=== PATIENT | male | born 1940 | race Hispanic/Latino ===

== ENCOUNTER 2017-07-02 11:59 | Emergency (ER) | payer OTHER ==
[2017-07-02] MEDS ORDERED: LIDOCAINE HCL-MPF 1% 2ML VIAL ONE (12:35)
[2017-07-02] MEDS ORDERED: CEFTRIAXONE SODIUM 500 MG VIAL ONE (12:35)
[2017-07-02] MEDS ORDERED: AZITHROMYCIN 250 MG TABLET PO ONE (12:36)
[2017-07-02 13:10] LABS: APPEARANCE,URINE Cloudy (CLEAR); BILIRUBIN,URINE Negative (NEGATIVE); COLOR,URINE Dark Yellow (YELLOW); GLUCOSE, URINE (UA) TRACE mg/dL (NEGATIVE); KETONES,URINE Negative (NEGATIVE); LEUKOCYTE ESTERASE ,URINE Large (NEGATIVE); NITRATE,URINE Negative (NEGATIVE); OCCULT BLOOD,URINE Small (NEGATIVE); PH,URINE 5.5 (5.0-8.0); PROTEIN,URINE POS 1+ (NEGATIVE)
[2017-07-02 13:36] LABS: BACTERIA,URINE Rare /HPF (None Seen); SQUAMOUS EPITHELIAL CELL,UR Rare /HPF (0-2); WBC,URINE TNTC /HPF (0-1)
[2017-07-02 14:11] LABS: BASOPHILS % (AUTO) 0.4 % (0.0-5.0); HEMATOCRIT 42.9 % (42-54); LYMPHOCYTES % (AUTO) 8.6 % (21.0-51.0); MEAN CORPUSCULAR HEMOGLOBIN 28.3 pg (27.0-33.0); MEAN CORPUSCULAR HGB CONC 33.8 g/dL (32.0-36.0); MEAN CORPUSCULAR VOLUME 83.7 fL (79-99); MONOCYTES % (AUTO) 8.7 % (3.0-13.0); NEUTROPHILS % (AUTO) 82.3 % (40.0-77.0); PLATELET COUNT (AUTO) 208 K/uL (130-400); RED BLOOD CELL COUNT(AUTO) 5.13 MIL/uL (4.50-6.20); RED CELL DISTRIBUTION WIDTH 13.3 % (11.0-15.5); WHITE BLOOD COUNT (AUTO) 20.9 K/uL (4.8-10.8)
[2017-07-02 14:22] LABS: CREATININE 0.9 mg/dL (0.5-1.5); POTASSIUM 3.9 mmol/L (3.5-5.1)
[2017-07-02 14:27] LABS: ALBUMIN 3.9 g/dL (3.5-5.0); BILIRUBIN,TOTAL 1.1 mg/dL (0.2-1.0); TOTAL PROTEIN, SERUM 8.3 g/dL (6.0-8.3)
[2017-07-02] MEDS ORDERED: LEVOFLOXACIN 500 MG TABLET ONE (14:40)
== END 2017-07-02 15:04 | disposition left against medical advice (07) ==
LOC: EDH 11:59
DX: N45.3 Epididymo-orchitis (principal); E78.5 Hyperlipidemia, unspecified; E11.9 Type 2 diabetes mellitus without complications; I10 Essential (primary) hypertension; Z85.038 Personal history of other malignant neoplasm of large intestine; Z98.890 Other specified postprocedural states
CPT/HCPCS: 36415; 76870; 80053; 81001; 83605; 85025; 87486; 87797; 96372; 99285; J0696; J3490

== ENCOUNTER 2018-06-08 12:05 | Emergency (ER) | payer OTHER | END 2018-06-08 15:24 | disposition home or self-care (01) | LOC: EDH 12:05 | DX: S16.1XXA Strain of muscle, fascia and tendon at neck level, initial encounter (principal); S40.012A Contusion of left shoulder, initial encounter; E11.9 Type 2 diabetes mellitus without complications; E78.5 Hyperlipidemia, unspecified; I10 Essential (primary) hypertension; Z85.038 Personal history of other malignant neoplasm of large intestine; V49.9XXA Car occupant (driver) (passenger) injured in unspecified traffic accident, initial encounter; Y93.89 Activity, other specified; Y92.89 Other specified places as the place of occurrence of the external cause; Y99.8 Other external cause status | CPT/HCPCS: 70450; 71046; 72125; 73030; 99282 ==

== ENCOUNTER → 2019-09-25 | Outpatient (CLI) | payer OTHER ==
[~2019-09-25] MED LIST: IOHEXOL-350 50ML VIAL IV ONE
== END | disposition home or self-care (01) ==
LOC: RAH 12:10
PROVIDERS: ATTEND Family Medicine
DX: G31.9 Degenerative disease of nervous system, unspecified (principal); R42 Dizziness and giddiness; I10 Essential (primary) hypertension; R51 Headache; H53.9 Unspecified visual disturbance; R09.89 Other specified symptoms and signs involving the circulatory and respiratory systems
CPT/HCPCS: 70470; 93880; Q9967

== ENCOUNTER → 2019-12-02 | Outpatient (CLI) | payer OTHER | END | disposition home or self-care (01) | LOC: SHCH 08:09 | PROVIDERS: ATTEND Internal Medicine Cardiovascular Disease | DX: R01.1 Cardiac murmur, unspecified (principal); G45.9 Transient cerebral ischemic attack, unspecified | CPT/HCPCS: 93306; 93356 ==

== ENCOUNTER → 2023-07-27 | Outpatient (CLI) | payer OTHER | END | disposition home or self-care (01) | LOC: SHCH 15:06 | PROVIDERS: ATTEND Internal Medicine Cardiovascular Disease | DX: I08.0 Rheumatic disorders of both mitral and aortic valves (principal); E11.9 Type 2 diabetes mellitus without complications | CPT/HCPCS: 93306 ==

== ENCOUNTER 2024-10-05 14:45 | Emergency (ER) | payer OTHER ==
[~2024-10-05] VITALS: Ht 175.3 cm; Wt 74.4 kg
[2024-10-05 15:12] LABS: RAPID GROUP A STREP negative (NEGATIVE)
[2024-10-05 15:17] LABS: SARS-CoV-2, RNA, NAAT POSITIVE SARS CoV-2 (NEGATIVE)
[2024-10-05 15:24] LABS: INFLUENZA TYPE A Negative For Type A (NEGATIVE); INFLUENZA TYPE B Negative For Type B (NEGATIVE)
--- NOTE | 2024-10-05 15:34 | ERN ---
General Chief Complaint: Weakness Stated Complaint: WEAKNESS Time Seen by MD: 14:47 Source: patient History of Present Illness Initial Comments Patient is a an 83-year-old male coming in complaining of generalized body weakness. Per patient he has a history of this presentation in it presents every now and then. Patient states that earlier today while trying to get off the chair and he was very weak but this has not been the 1st time this happened. The difference was that today the daughter witnessed the weakness and was concerned for a stroke in his is a reason why patient is here. Patient was also witnessed to have red eyes and nasal congestion and when as he states that this has been ongoing for a couple of days. Allergies: Coded Allergies: No Known Drug Intolerances (Unverified Allergy, Unknown, 07/23/13) Past Medical History Past Medical History: Diabetes-Type II, Heart Disease, Hypertension, Other Medical History Other: heart murmur Past Surgical History: Appendectomy ROS Dictation CONSTITUTIONAL: No chills, no fever, weakness, no diaphoresis, malaise. HEAD/FACE: No signs of trauma. EENT: No eye pain, no blurred vision, no tearing, no double vision, no ear pain, no ear discharge, no nose pain, nasal congestion, no throat pain, no throat swelling, no mouth pain. RESPIRATORY: No cough, no orthopnea, no SOB, no stridor, no wheezing. CARDIOVASCULAR: No chest pain, no edema, no palpitations, no syncope. GASTROINTESTINAL/ABDOMINAL: No abdominal pain, no constipation, no diarrhea, no nausea, no vomiting. GENITOURINARY: No abnormal discharge, no dysuria, no frequent urination, no hematuria. No complaints of pain in the genitals. MUSCULOSKELETAL: No back pain, no gout, no joint pain, no joint swelling, no muscle pain, no muscle stiffness, no neck pain. INTEGUMENTARY: No change in color, no change in hair/nails, no dryness, no lesion, no lumps, no rash. NEUROLOGICAL/PSYCH: No anxiety, not depressed, no emotional problem, no headache, no numbness, no pre-existing deficit, no history of seizures, no tremors, no weakness. HEMATOLOGIC/LYMPHATIC: Not anemic, no history of blood clots, no apparent bleeding, no bruising, glands not swollen. All Systems Negative, Except as Noted. Physical Exam Physical Exam Dictation VITAL SIGNS: Reviewed. GENERAL APPEARANCE: Alert, oriented x3, no acute distress, obese. HEAD AND FACE: Non-traumatic. EYES: PERRL, pink conjunctivas, eyelid no trauma, anterior chamber clear. EARS: Pinnas intact and no signs of trauma or erythema. Ear canals clear and no discharge. TMs no erythema. NOSE: No discharge, no bleeding. OROPHARYNX: Mouth normal, teeth no caries, tongue pink. Pharynx clear, no erythema. Tonsils no exudates, no abscesses noted. Mucous membrane moist. NECK: Supple, non-tender, no thyromegaly, no masses, no JVD, no bruits. BREAST: Deferred. CHEST: No tenderness, no crepitus, no paradoxical movement, no retractions. LUNGS: Clear, well-ventilated, symmetric, no rales, no wheezing, no rhonchi, no stridor, good breath sounds bilaterally. HEART: Regular rate, regular rhythm, no murmur, no gallops. VASCULAR: No peripheral edema. ABDOMEN: Soft, positive bowel sounds, nondistended, no guarding, nontender, no rebound, no masses no hepatomegaly, no splenomegaly, no Villagomez's sign, no hernias. RECTAL: Deferred. GENITAL: Deferred. NEUROLOGICAL: Normal speech, gross motor function intact, gross sensory function intact. MUSCULOSKELETAL: Neck nontender, full range of motion, back nontender, full range of motion. EXTREMITIES: Nontender, full range of motion. SKIN: Color pink, dry, no turgor, no rash, no lacerations, no abrasions, no contusions. LYMPHATICS: Deferred. Results Laboratory and Microbiology Lab and Micro Result Laboratory Tests Test 10/05/24 14:55 10/05/24 15:20 10/05/24 17:11 Influenza Type A Antigen Negative For Type A Influenza Type B Antigen Negative For Type B SARS-CoV-2, RNA, NAAT POSITIVE SARS CoV-2 Group A Streptococcus Rapid negative (NEGATIVE) White Blood Count 9.4 K/uL (4.8-10.8) Red Blood Count 5.05 MIL/uL (4.50-6.20) Hemoglobin 14.2 g/dL (14.0-18.0) Hematocrit 43.9 % (42-54) Mean Corpuscular Volume 86.9 fL (79-99) Mean Corpuscular Hemoglobin 28.1 pg (27.0-33.0) Mean Corpuscular Hemoglobin Concent 32.3 g/dL (32.0-36.0) Red Cell Distribution Width 13.1 % (11.0-15.5) Platelet Count 173 K/uL (130-400) Mean Platelet Volume 9.4 fL (7.5-10.5) Immature Granulocyte % (Auto) 0.4 % (0-1) Neutrophils (%) (Auto) 84.1 % (40.0-77.0) H Lymphocytes (%) (Auto) 6.0 % (21.0-51.0) L Monocytes (%) (Auto) 8.9 % (3.0-13.0) Eosinophils (%) (Auto) 0.1 % (0.0-8.0) Basophils (%) (Auto) 0.5 % (0.0-5.0) Neutrophils # (Auto) 7.9 K/uL (1.8-7.7) H Lymphocytes # (Auto) 0.6 K/uL (1.0-4.8) L Monocytes # (Auto) 0.8 K/uL (0.1-1.0) Eosinophils # (Auto) 0.01 K/uL (0.00-0.70) Basophils # (Auto) 0.05 K/uL (0.00-0.20) Absolute Immature Granulocyte (auto 0.04 K/uL (0-1) Nucleated Red Blood Cells 0.0 % (0.0-0.19) White Cell Morphology Comment See comments Sodium Level 139 mmol/L (136-145) Potassium Level 3.9 mmol/L (3.5-5.1) Chloride Level 102 mmol/L (101-111) Carbon Dioxide Level 30 mmol/L (21-32) Blood Urea Nitrogen 10 mg/dL (7-18) Creatinine 1.0 mg/dL (0.5-1.3) Glomerular Filtration Rate Calc 76 mL/min (>90) Random Glucose 145 mg/dL (70-105) H Lactic Acid Level 1.6 mmol/L (0.8-2.5) Total Calcium 8.9 mg/dL (8.5-10.1) Total Creatine Kinase 64 U/L (21-232) Troponin I High Sensitivity 21 ng/L (4-75) Urine Color LIGHT-YELLOW (YELLOW) Urine Appearance CLEAR (CLEAR) Urine pH 5.5 (5.0-8.0) Urine Specific [place] 1.015 (1.001-1.031) Urine Protein 10 mg/dL (NEGATIVE) H Urine Glucose (UA) 70 mg/dL (NEGATIVE) H Urine Ketones NEGATIVE mg/dL (NEGATIVE) Urine Occult Blood NEGATIVE (NEGATIVE) Urine Nitrate NEGATIVE (NEGATIVE) Urine Bilirubin NEGATIVE mg/dL (NEGATIVE) Urine Urobilinogen 0.2 mg/dL (0.2-1.0) Urine Leukocyte Esterase 25 Bebe/uL (NEGATIVE) H Urine RBC 2-5 /HPF (0-1) H Urine WBC 2-5 /HPF (0-1) H Urine Squamous Epithelial Cells RARE /HPF (0-2) Urine Bacteria None /HPF (None Seen) Labs Reviewed?: Yes MDM MDM: Differential diagnosis: COVID, flu, UTI, fever Rationale: Tests considered and ordered secondary to shared decision making include: Previous outside records reviewed: Old ER visits. Risk of complication and/or morbidity or mortality of patient management: None Medications-Per medication reconciliation Need for hospitalization: Patient does not meet criteria for hospitalization. Need for emergency major/minor surgery: No Patient is a 83-year-old coming in to be evaluated for weakness. Patient was positive for COVID has a mild UTI was given IV fluids states he feels better he will be discharged in stable condition. I have offered patient to stay but he states he had does not want to stay and wants to go home he feels better and states he has family that will take care of him if he changes mind he states he will come back. ED Course Orders Procedure Category Date Status Time Cbc With Differential LAB 10/05/24 Complete 14:47 Blood Cult LONA 10/05/24 In Process 14:47 Urinalysis Profile LAB 10/05/24 Complete 14:47 Culture Urine LONA 10/05/24 In Process 14:47 Creatine Kinase, Total LAB 10/05/24 Complete 14:47 Troponin I High LAB 10/05/24 Complete Sensitivity 14:47 Lactic Acid LAB 10/05/24 Complete 14:47 Basic Metabolic Panel LAB 10/05/24 Complete 14:47 Covid Rna Naat LAB 10/05/24 Complete 14:47 Influenza Type A & B, LAB 10/05/24 Complete Rapid 14:47 Rapid (Group A Strep) LAB 10/05/24 Complete 14:47 Acetaminophen 500mg PHA 10/05/24 Complete Tab (Tylenol 500mg T 15:00 0.9%Nacl 1000ml (Ns PHA 10/05/24 In Process 1000ml) 17:00 0.9%Nacl 1000ml (Ns PHA 10/05/24 In Process 1000ml) 18:00 Chest 1vw RAD 10/05/24 Resulted 17:07 Current Medications Medications (Trade) Dose Ordered Sig/Amber Route PRN Reason Start Time Stop Time Status Last Admin Dose Admin Acetaminophen (TYLenol 500MG TAB) 1,000 mg ONCE ONCE PO 10/05/24 15:00 10/05/24 15:01 DC 10/05/24 15:38 Sodium Chloride 1,000 ml @ 0 mls/hr Q0M IV 10/05/24 18:00 11/04/24 17:59 10/05/24 17:05 Sodium Chloride 1,000 ml @ 1,000 mls/hr Q1H IV 10/05/24 17:00 10/05/24 17:59 Vital Signs Date Time Temp Pulse Resp B/P (MAP) Pulse Ox O2 Delivery O2 Flow Rate FiO2 10/05/24 17:09 99.3 70 18 146/54 98 Room Air* 0 21 10/05/24 15:38 100.2 10/05/24 14:52 100.2 70 18 146/54 98 Room Air* 0 21 10/05/24 14:47 100.2 70 18 146/56 98 Room Air 0 DX & DISP Disposition: Discharge Departure Impression: Primary Impression: COVID-19 Additional Impression: UTI (urinary tract infection) Condition: Stable Scripts Acetaminophen (Tylenol) 500 Mg Tab 1 TAB PO Q6HPRN PRN for pain or fever for 3 Days, #20 TAB 0 Refills Prov: PAOLO PIERSON MD 10/05/24 Molnupiravir (Molnupiravir (Eua)) 200 Mg Capsule 4 CAP PO BID for 5 Days, #40 CAP 0 Refills Prov: PAOLO PIERSON MD 10/05/24 Cephalexin Monohydrate (Keflex) 500 Mg Cap 1 CAP PO BID for 7 Days, #14 CAP 0 Refills Prov: PAOLO PIERSON MD 10/05/24 Additional Instructions: FOLLOW-UP WITH PRIMARY CARE PROVIDER IN 1 TO 2 DAYS. TAKE MEDICATIONS DIRECTED HERE IN THE EMERGENCY ROOM. OKAY TO CONTINUE HOME MEDICATIONS UNLESS OTHERWISE DISCUSSED DURING YOUR VISIT IN THE EMERGENCY ROOM TODAY. RETURN TO YOUR NEAREST EMERGENCY ROOM IF SYMPTOMS WORSEN OR IF THERE IS NO IMPROVEMENT. CALL 911 IF YOU NEED IMMEDIATE ASSISTANCE. TAKE TYLENOL [id number] NEEDED AND IF NO CONTRAINDICATIONS ARE PRESENT. INCREASE ORAL HYDRATION. A WOUND CULTURE OR URINE CULTURE WAS ORDERED HERE IN THE EMERGENCY ROOM DEPARTMENT PLEASE FOLLOW-UP WITH PRIMARY CARE PROVIDER AND ADVISE THEM TO GET REPORTS FROM OUR FACILITY. IF YOU HAD ANY SAHARA WRAP/SPLINTS THAT WERE APPLIED HERE, PLEASE DO NOT REMOVE THEM UNTIL YOU SEE YOUR PRIMARY CARE OR SPECIALTY. Referrals: Referrals: KASSI MAHER MD (PCP) Time of Disposition: 17:54 PAOLO PIERSON MD Oct 05, 2024 15:34
[2024-10-05 15:38] LABS: IMMATURE GRANULOCYTE ABSOLUTE 0.04 K/uL (0-1); NUCLEATED RED BLOOD CELLS 0.0 % (0.0-0.19); PLATELET COUNT (AUTO) 173 K/uL (130-400); RED BLOOD CELL COUNT(AUTO) 5.05 MIL/uL (4.50-6.20); RED CELL DISTRIBUTION WIDTH 13.1 % (11.0-15.5); WHITE BLOOD COUNT (AUTO) 9.4 K/uL (4.8-10.8)
[2024-10-05 15:50] LABS: CREATININE 1.0 mg/dL (0.5-1.3); GLOMERULAR FILTR. RATE CALC 76.0 mL/min (>90); GLUCOSE,RANDOM 145.0 mg/dL (70-105); SODIUM SERUM 139.0 mmol/L (136-145); UREA NITROGEN, BLOOD 10.0 mg/dL (7-18)
[2024-10-05 15:55] LABS: CREATINE KINASE, TOTAL 64.0 U/L (21-232)
[2024-10-05 16:15] VITALS: TEMP 99
[2024-10-05] MEDS: 0.9%NACL 1000ML 1,000 ML IV SCH ×2 (17:00→17:05)
[2024-10-05 17:09] VITALS: BP 146/54; PULSE 70; RESP 18; TEMP 99.4; O2SAT 98
--- NOTE | 2024-10-05 17:32 | HMCIMG ---
EXAM: CR Chest, 1 View. CLINICAL HISTORY: fever COMPARISON: None provided. FINDINGS: LUNGS: The lungs show no infiltrate or other acute finding. PLEURAL SPACES: No evidence of pleural effusion or pneumothorax. MEDIASTINUM: Cardiac size and mediastinal contours within normal limits. BONES: No acute osseous abnormality. IMPRESSION: No acute cardiopulmonary pathology is evident. /[place]
[2024-10-05 17:39] LABS: APPEARANCE,URINE CLEAR (CLEAR); GLUCOSE, URINE (UA) 70 mg/dL (NEGATIVE); LEUKOCYTE ESTERASE ,URINE 25 Leu/uL (NEGATIVE); NITRATE,URINE NEGATIVE (NEGATIVE); OCCULT BLOOD,URINE NEGATIVE (NEGATIVE)
[2024-10-05 17:40] LABS: ADD UA MICROSCOPIC YES
[2024-10-05 17:42] LABS: SQUAMOUS EPITHELIAL CELL,UR RARE /HPF (0-2)
[2024-10-05] MEDS ORDERED: CEPH500B PO (17:55)
[2024-10-05] MEDS ORDERED: ACET-66 PO (17:55)
[2024-10-05] MEDS ORDERED: MOLN200C PO (17:55)
== END 2024-10-05 18:07 | disposition home or self-care (01) ==
LOC: EDH 14:45
DX: U07.1 COVID-19 (principal); N39.0 Urinary tract infection, site not specified; E11.9 Type 2 diabetes mellitus without complications; I11.9 Hypertensive heart disease without heart failure; Z90.49 Acquired absence of other specified parts of digestive tract
CPT/HCPCS: 99284; 96360; 71045; 87635; 82550; 84484; 80048; 85025; 87040 ×2; 87086; 87880; 87804 ×2; 83605; 81001; 36415; J7030

== ENCOUNTER 2024-12-30 09:42 | Emergency (ER) | payer OTHER ==
[~2024-12-30] VITALS: Ht 175.3 cm; Wt 74.8 kg
[~2024-12-30 09:42] MED LIST changes: +ACET-66 PO; +CEPH500B PO; -IOHEXOL-350 50ML VIAL IV ONE; +MOLN200C PO
--- NOTE | 2024-12-30 09:48 | ERN ---
General Chief Complaint: Cough Stated Complaint: COUGH, CONGESTION Time Seen by MD: 09:44 Source: patient History of Present Illness Initial Comments Patient is a an 84-year-old male coming in complaining of cough and congestion. Per patient this has been ongoing for several days. He states that he recently got his flu and COVID vaccines. Along with the these vaccines he also got his RSV vaccine. He is complaining of cough runny nose itchy eyes. Allergies: Coded Allergies: No Known Drug Intolerances (Unverified Allergy, Unknown, 07/23/13) Home Meds Active Scripts Acetaminophen (Tylenol) 500 Mg Tab, 1 TAB PO Q6HPRN PRN for pain or fever for 3 Days, #20 TAB 0 Refills Prov:PAOLO PIERSON MD 10/05/24 Molnupiravir (Molnupiravir (Eua)) 200 Mg Capsule, 4 CAP PO BID for 5 Days, #40 CAP 0 Refills Prov:PAOLO PIERSON MD 10/05/24 Cephalexin Monohydrate (Keflex) 500 Mg Cap, 1 CAP PO BID for 7 Days, #14 CAP 0 Refills Prov:PAOLO PIERSNO MD 10/05/24 Past Medical History Past Medical History: Diabetes-Type II, Heart Disease, Hypertension, Other Medical History Other: heart murmur Past Surgical History: Appendectomy ROS Dictation CONSTITUTIONAL: No chills, no fever, no weakness, no diaphoresis, no malaise. HEAD/FACE: No signs of trauma. EENT: No eye pain, no blurred vision, tearing, no double vision, no ear pain, no ear discharge, no nose pain, nasal congestion, no throat pain, no throat swelling, no mouth pain. RESPIRATORY: cough, no orthopnea, no SOB, no stridor, no wheezing. CARDIOVASCULAR: No chest pain, no edema, no palpitations, no syncope. GASTROINTESTINAL/ABDOMINAL: No abdominal pain, no constipation, no diarrhea, no nausea, no vomiting. GENITOURINARY: No abnormal discharge, no dysuria, no frequent urination, no hematuria. No complaints of pain in the genitals. MUSCULOSKELETAL: No back pain, no gout, no joint pain, no joint swelling, no muscle pain, no muscle stiffness, no neck pain. INTEGUMENTARY: No change in color, no change in hair/nails, no dryness, no lesion, no lumps, no rash. NEUROLOGICAL/PSYCH: No anxiety, not depressed, no emotional problem, no hea dache, no numbness, no pre-existing deficit, no history of seizures, no tremors, no weakness. HEMATOLOGIC/LYMPHATIC: Not anemic, no history of blood clots, no apparent bleeding, no bruising, glands not swollen. All Systems Negative, Except as Noted. Physical Exam Physical Exam Dictation VITAL SIGNS: Reviewed. GENERAL APPEARANCE: Alert, oriented x3, no acute distress, obese. HEAD AND FACE: Non-traumatic. EYES: PERRL, pink conjunctivas, eyelid no trauma, anterior chamber clear. EARS: Pinnas intact and no signs of trauma or erythema. Ear canals clear and no discharge. TMs no erythema. NOSE: No discharge, no bleeding. OROPHARYNX: Mouth normal, teeth no caries, tongue pink. Pharynx clear, no erythema. Tonsils no exudates, no abscesses noted. Mucous membrane moist. NECK: Supple, non-tender, no thyromegaly, no masses, no JVD, no bruits. BREAST: Deferred. CHEST: No tenderness, no crepitus, no paradoxical movement, no retractions. LUNGS: Clear, well-ventilated, symmetric, no rales, no wheezing, no rhonchi, no stridor, good breath sounds bilaterally. HEART: Regular rate, regular rhythm, no murmur, no gallops. VASCULAR: No peripheral edema. ABDOMEN: Soft, positive bowel sounds, nondistended, no guarding, nontender, no rebound, no masses no hepatomegaly, no splenomegaly, no Villagomez's sign, no hernias. RECTAL: Deferred. GENITAL: Deferred. NEUROLOGICAL: Normal speech, gross motor function intact, gross sensory function intact. MUSCULOSKELETAL: Neck nontender, full range of motion, back nontender, full range of motion. EXTREMITIES: Nontender, full range of motion. SKIN: Color pink, dry, no turgor, no rash, no lacerations, no abrasions, no contusions. LYMPHATICS: Deferred. Results Laboratory and Microbiology Lab and Micro Result Laboratory Tests Test 12/30/24 09:49 12/30/24 10:08 12/30/24 13:33 Influenza Type A Antigen Negative For Type A Influenza Type B Antigen Negative For Type B SARS-CoV-2, RNA, NAAT NEGATIVE SARS CoV-2 Group A Streptococcus Rapid negative (NEGATIVE) White Blood Count 11.6 K/uL (4.8-10.8) H Red Blood Count 5.11 MIL/uL (4.50-6.20) Hemoglobin 14.2 g/dL (14.0-18.0) Hematocrit 43.2 % (42-54) Mean Corpuscular Volume 84.5 fL (79-99) Mean Corpuscular Hemoglobin 27.8 pg (27.0-33.0) Mean Corpuscular Hemoglobin Concent 32.9 g/dL (32.0-36.0) Red Cell Distribution Width 12.4 % (11.0-15.5) Platelet Count 254 K/uL (130-400) Mean Platelet Volume 8.8 fL (7.5-10.5) Immature Granulocyte % (Auto) 0.5 % (0-1) Neutrophils (%) (Auto) 76.3 % (40.0-77.0) Lymphocytes (%) (Auto) 12.9 % (21.0-51.0) L Monocytes (%) (Auto) 8.9 % (3.0-13.0) Eosinophils (%) (Auto) 0.9 % (0.0-8.0) Basophils (%) (Auto) 0.5 % (0.0-5.0) Neutrophils # (Auto) 8.9 K/uL (1.8-7.7) H Lymphocytes # (Auto) 1.5 K/uL (1.0-4.8) Monocytes # (Auto) 1.0 K/uL (0.1-1.0) Eosinophils # (Auto) 0.10 K/uL (0.00-0.70) Basophils # (Auto) 0.06 K/uL (0.00-0.20) Absolute Immature Granulocyte (auto 0.06 K/uL (0-1) Nucleated Red Blood Cells 0.0 % (0.0-0.19) Sodium Level 139 mmol/L (136-145) Potassium Level 4.3 mmol/L (3.5-5.1) Chloride Level 102 mmol/L (101-111) Carbon Dioxide Level 29 mmol/L (21-32) Blood Urea Nitrogen 9 mg/dL (7-18) Creatinine 0.9 mg/dL (0.5-1.3) Glomerular Filtration Rate Calc 85 mL/min (>90) Random Glucose 216 mg/dL (70-105) H Total Calcium 8.7 mg/dL (8.5-10.1) Total Creatine Kinase 45 U/L (21-232) # Troponin I High Sensitivity 8 ng/L (4-75) B-Type Natriuretic Peptide 92 pg/mL (0-100) Urine Color YELLOW (YELLOW) Urine Appearance CLEAR (CLEAR) Urine pH 5.5 (5.0-8.0) Urine Specific [place] 1.015 (1.001-1.031) Urine Protein NEGATIVE mg/dL (NEGATIVE) Urine Glucose (UA) 30 mg/dL (NEGATIVE) H Urine Ketones NEGATIVE mg/dL (NEGATIVE) Urine Occult Blood NEGATIVE (NEGATIVE) Urine Nitrate NEGATIVE (NEGATIVE) Urine Bilirubin NEGATIVE mg/dL (NEGATIVE) Urine Urobilinogen 0.2 mg/dL (0.2-1.0) Urine Leukocyte Esterase NEGATIVE Bebe/uL Urine RBC 6-10 /HPF (0-1) H Urine WBC 6-10 /HPF (0-1) H Urine Squamous Epithelial Cells RARE /HPF (0-2) Urine Bacteria None /HPF (None Seen) Labs Reviewed?: Yes EKG/XRAY/US/CT/MRI X-RAY Comment IMAGING REPORT Signed PATIENT: RIMA POLANCO MR#: [id number] : 1940 SEX: M AGE: 84 LOCATION: [facility] ORDER 6 STATUS: [facility] REPORT#: [id number] SERVICE [id number] REASON: cough ORDERING PHYSICIAN: PAOLO PIERSON MD PROCEDURE: CXR1VW - CHEST 1VW EXAM: CR Chest, 1 View. CLINICAL HISTORY: cough COMPARISON: Radiograph dated October 05, 2024 FINDINGS: LUNGS: There is no mass, infiltrate, or acute pulmonary abnormality. Round subcentimeter density at the peripheral right lower lung may reflect a nipple shadow versus a pulmonary nodule. Consider either repeat radiographs with nipple markers and both PA and lateral projections or CT imaging on a nonemergent basis. PLEURAL SPACES: No evidence of pleural effusion or pneumothorax. MEDIASTINUM: The cardiomediastinal silhouette is within normal limits. BONES: No aggressive appearing osseous lesion seen. IMPRESSION: 1. No acute cardiopulmonary findings. 2. Round subcentimeter density at the peripheral right lower lung, possibly representing a nipple shadow versus a pulmonary nodule. /[place] DICTATED BY: JUDY MICHAUD Jr., MD DATE: 12/30/24 120 ELECTRONICALLY SIGNED BY: JUDY MICHAUD Jr., MD DATE: 12/30/24 120 MDM MDM: Differential diagnosis: URI, SINUSITIS, CONJUNCTIVITIS, Rationale: Tests considered and ordered secondary to shared decision making include: Previous outside records reviewed: Old ER visits. Risk of complication and/or morbidity or mortality of patient management: None Medications-Per medication reconciliation Need for hospitalization: Patient does not meet criteria for hospitalization. Need for emergency major/minor surgery: No PATIENT IS A 4-YEAR-OLD MALE COMING IN COMPLAINING OF URI SYMPTOMS. URI SYMPTOMS INCLUDE CONJUNCTIVITIS NASAL CONGESTION COUGH RUNNY NOSE. CARDIAC WORKUP NEGATIVE FOR ACUTE FINDINGS. PATIENT RECEIVED A BREATHING TREATMENTS SOME STEROIDS STATES HE FEELS MUCH BETTER WE WILL BE DISCHARGED IN STABLE CONDITION WITH A DIAGNOSIS OF URI WITH CONJUNCTIVITIS. ANTIBIOTICS WILL BE PROVIDED WELL SYMPTOMATIC MEDICATION. ED Course Orders Procedure Category Date Status Time Cbc With Differential LAB 12/30/24 Complete 09:45 Chest 1vw RAD 12/30/24 Resulted 09:45 12 Lead Ekg Tracing- EKG 12/30/24 Resulted Technical 09:45 Creatine Kinase, Total LAB 12/30/24 Complete 09:45 Troponin I High LAB 12/30/24 Complete Sensitivity 09:45 Urinalysis Profile LAB 12/30/24 Complete 09:45 Basic Metabolic Panel LAB 12/30/24 Complete 09:45 B-Type Natriuretic LAB 12/30/24 Complete Peptide 09:45 Covid Rna Naat LAB 12/30/24 Complete 09:45 Rapid (Group A Strep) LAB 12/30/24 Complete 09:45 Influenza Type A & B, LAB 12/30/24 Complete Rapid 09:45 Dexamethasone 4mg/Ml PHA 12/30/24 Complete 1ml Vial (Dexametha 13:30 Ipratropium/Albuterol PHA 12/30/24 Complete Neb (Duoneb) 13:30 Culture Urine LONA 12/30/24 In Process 14:19 Current Medications Medications (Trade) Dose Ordered Sig/Amber Route PRN Reason Start Time Stop Time Status Last Admin Dose Admin Albuterol (DUOneb) 2 udvial ONCE ONCE IH 12/30/24 13:30 12/30/24 13:31 DC 12/30/24 13:52 Dexamethasone Sodium Phosphate (dexaMETHasone 4MG/ML 1ML VIAL) 4 mg ONCE ONCE IM 12/30/24 13:30 12/30/24 13:31 DC 12/30/24 13:47 Vital Signs Date Time Temp Pulse Resp B/P (MAP) Pulse Ox O2 Delivery O2 Flow Rate FiO2 12/30/24 13:56 97 18 12/30/24 13:36 98.2 92 18 149/74 99 Room Air* 0 21 12/30/24 09:46 98.2 110 18 162/84 98 Room Air* 0 21 12/30/24 09:44 98.2 110 18 162/84 99 Room Air 0 DX & DISP Disposition: Discharge Departure Impression: Primary Impression: Conjunctivitis Additional Impressions: URI (upper respiratory infection), Sinusitis Condition: Stable Scripts Loratadine (Loratadine) 10 Mg Tablet 1 TAB PO DAILY for allergy symptoms for 30 Days, #30 TAB 0 Refills Prov: PAOLO PIERSON MD 12/30/24 Fluticasone Propionate (Flonase Nasal [place]) 50 Mcg/Actuation [place] 2 SPRAY NS DAILY, #16 GM 0 Refills Prov: PAOLO PIERSON MD 12/30/24 Amoxicillin/Potassium Clav (Amox Tr-K Clv 875-125 mg Tab) 875 Mg-125 Mg Tablet 1 TAB PO BID for 10 Days, #20 TAB 0 Refills Prov: PAOLO PIERSON MD 12/30/24 Additional Instructions: FOLLOW-UP WITH PRIMARY CARE PROVIDER IN 1 TO 2 DAYS. TAKE MEDICATIONS DIRECTED HERE IN THE EMERGENCY ROOM. OKAY TO CONTINUE HOME MEDICATIONS UNLESS OTHERWISE DISCUSSED DURING YOUR VISIT IN THE EMERGENCY ROOM TODAY. RETURN TO YOUR NEAREST EMERGENCY ROOM IF SYMPTOMS WORSEN OR IF THERE IS NO IMPROVEMENT. CALL 911 IF YOU NEED IMMEDIATE ASSISTANCE. TAKE TYLENOL [id number] NEEDED AND IF NO CONTRAINDICATIONS ARE PRESENT. INCREASE ORAL HYDRATION. A WOUND CULTURE OR URINE CULTURE WAS ORDERED HERE IN THE EMERGENCY ROOM DEPARTMENT PLEASE FOLLOW-UP WITH PRIMARY CARE PROVIDER AND ADVISE THEM TO GET REPORTS FROM OUR FACILITY. IF YOU HAD ANY SAHARA WRAP/SPLINTS THAT WERE APPLIED HERE, PLEASE DO NOT REMOVE THEM UNTIL YOU SEE YOUR PRIMARY CARE OR SPECIALTY. REFERRALS: Referrals: KASSI MAHER MD (PCP) Time of Disposition: 15:05 PAOLO PIERSON MD Dec 30, 2024 09:48
[2024-12-30 10:10] LABS: IMMATURE GRANULOCYTE ABSOLUTE 0.06 K/uL (0-1); NUCLEATED RED BLOOD CELLS 0.0 % (0.0-0.19); PLATELET COUNT (AUTO) 254 K/uL (130-400); RED BLOOD CELL COUNT(AUTO) 5.11 MIL/uL (4.50-6.20); RED CELL DISTRIBUTION WIDTH 12.4 % (11.0-15.5); WHITE BLOOD COUNT (AUTO) 11.6 K/uL (4.8-10.8)
[2024-12-30 10:14] LABS: RAPID GROUP A STREP negative (NEGATIVE)
[2024-12-30 10:16] LABS: SARS-CoV-2, RNA, NAAT NEGATIVE SARS CoV-2 (NEGATIVE)
[2024-12-30 10:24] LABS: INFLUENZA TYPE A Negative For Type A (NEGATIVE); INFLUENZA TYPE B Negative For Type B (NEGATIVE)
[2024-12-30 10:28] LABS: CREATININE 0.9 mg/dL (0.5-1.3); GLOMERULAR FILTR. RATE CALC 85.0 mL/min (>90); GLUCOSE,RANDOM 216.0 mg/dL (70-105); SODIUM SERUM 139.0 mmol/L (136-145); UREA NITROGEN, BLOOD 9.0 mg/dL (7-18)
[2024-12-30 10:33] LABS: CREATINE KINASE, TOTAL 45.0 U/L (21-232)
--- NOTE | 2024-12-30 10:46 | EKG ---
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
--- NOTE | 2024-12-30 11:02 | HMCIMG ---
EXAM: CR Chest, 1 View. CLINICAL HISTORY: cough COMPARISON: Radiograph dated October 05, 2024 FINDINGS: LUNGS: There is no mass, infiltrate, or acute pulmonary abnormality. Round subcentimeter density at the peripheral right lower lung may reflect a nipple shadow versus a pulmonary nodule. Consider either repeat radiographs with nipple markers and both PA and lateral projections or CT imaging on a nonemergent basis. PLEURAL SPACES: No evidence of pleural effusion or pneumothorax. MEDIASTINUM: The cardiomediastinal silhouette is within normal limits. BONES: No aggressive appearing osseous lesion seen. IMPRESSION: 1. No acute cardiopulmonary findings. 2. Round subcentimeter density at the peripheral right lower lung, possibly representing a nipple shadow versus a pulmonary nodule. /[place]
[2024-12-30 13:52] LABS: APPEARANCE,URINE CLEAR (CLEAR); GLUCOSE, URINE (UA) 30 mg/dL (NEGATIVE); LEUKOCYTE ESTERASE ,URINE NEGATIVE Leu/uL (NEGATIVE); NITRATE,URINE NEGATIVE (NEGATIVE); OCCULT BLOOD,URINE NEGATIVE (NEGATIVE)
[2024-12-30 13:56] VITALS: PULSE 97; RESP 18
[2024-12-30 14:00] LABS: ADD UA MICROSCOPIC YES
[2024-12-30 14:15] LABS: SQUAMOUS EPITHELIAL CELL,UR RARE /HPF (0-2)
[2024-12-30] MEDS ORDERED: AMOX1TAB16 PO (15:07)
[2024-12-30] MEDS ORDERED: FLUT16H NS (15:07)
[2024-12-30] MEDS ORDERED: LORA10TA7 PO (15:07)
[2024-12-30 15:16] VITALS: BP 145/73; PULSE 90; RESP 18; TEMP 98.2; O2SAT 99
== END 2024-12-30 15:12 | disposition home or self-care (01) ==
LOC: EDH 09:42
DX: H10.9 Unspecified conjunctivitis (principal); J06.9 Acute upper respiratory infection, unspecified; J32.9 Chronic sinusitis, unspecified; I11.9 Hypertensive heart disease without heart failure; E11.9 Type 2 diabetes mellitus without complications; Z90.49 Acquired absence of other specified parts of digestive tract; Z20.822 Contact with and (suspected) exposure to COVID-19
CPT/HCPCS: 99285; 71045; 87635; 82550; 84484; 80048; 83880; 85025; 87086; 87880; 87804 ×2; 81001; 36415; 96372; 93005; 94640; J1100